=== PATIENT | female | born 1985 | race Caucasian/White ===

== ENCOUNTER 2016-06-05 14:47 | Inpatient (IN) | payer MEDICAID ==
[~2016-06-05] VITALS: Ht 162.6 cm; Wt 67.6 kg
[~2016-06-05 14:47] MED LIST: PRENAT PO
[2016-06-05] MEDS ORDERED: OXYTOCIN 30 UNITS/LR 500 ML IV PRN (15:00)
[2016-06-05] MEDS ORDERED: BUTORPHANOL 2 MG INJ IV PRN (15:00)
[2016-06-05] MEDS ORDERED: OXYTOCIN 30 UNITS/LR 500 ML IV SCH ×2 (15:00)
[2016-06-05] MEDS ORDERED: IBUPROFEN 600 MG TAB PO PRN (15:00)
[2016-06-05] MEDS ORDERED: METHYLERGONOVINE 0.2 MG INJ IM PRN (15:00)
[2016-06-05] MEDS ORDERED: LIDOCAINE 1% (MPF) 30 ML INJ INJ PRN (15:00)
[2016-06-05] MEDS ORDERED: CARBOPROST 250 MCG INJ IM PRN (15:00)
[2016-06-05] MEDS ORDERED: MINERAL OIL LIGHT 10 ML VIAL TOP ONE (15:00)
[2016-06-05] MEDS ORDERED: MISOPROSTOL 200 MCG TAB PR PRN (15:00)
[2016-06-05] MEDS ORDERED: LACTATED RINGER'S 1,000 ML IV PRN (15:00)
[2016-06-05 15:16] VITALS: Ht 162.6 cm; Wt 67.6 kg
[2016-06-05 15:17] VITALS: BP 99/62; PULSE 96; RESP 16
[2016-06-05] MEDS: LACTATED RINGER'S 1,000 ML IV SCH ×2 (15:48→22:31)
[2016-06-05] MEDS ORDERED: DINOPROSTONE 10 MG VAG SUPP VAG ONE (16:00)
[2016-06-05 16:09] LABS: BASOPHILS % 0.1 % (0.0-2.0); EOSINOPHILS # 0.1 10^3/ul (0.0-0.5); EOSINOPHILS % 0.6 % (0.0-7.0); HEMATOCRIT 34.8 % (37.0-47.0); HEMOGLOBIN 11.9 g/dl (12.0-16.0); LYMPHOCYTES # 1.9 10^3/ul (0.8-2.9); MEAN CORPUSCULAR HEMOGLOBIN 30.5 pg (29.0-33.0); MEAN CORPUSCULAR HGB CONC 34.3 g/dl (32.0-37.0); MEAN CORPUSCULAR VOLUME 88.8 fl (82.0-101.0); MEAN PLATELET VOLUME 7.4 fl (7.4-10.4); MONOCYTE # 0.4 10^3/ul (0.3-0.9); MONOCYTES % 4.5 % (0.0-11.0); NEUTROPHIL # 6.8 10^3/ul (1.6-7.5); NEUTROPHILS % 73.8 % (39.0-77.0); PLATELET COUNT 315 10^3/UL (140-440); RED BLOOD COUNT 3.92 10^6/ul (4.20-5.40); RED CELL DISTRIBUTION WIDTH 14.8 % (11.5-14.5); UNCORRECTED WBC 9.1 10^3/ul (4.8-10.8); WHITE BLOOD COUNT 9.1 10^3/ul (4.8-10.8)
[2016-06-05 16:15] LABS: CONDITION 1; LH ANALYZER COMMENTS 1
[2016-06-05 16:22] LABS: INR 0.88; PROTIME 11.9 Sec (12.2-14.2); PT RATIO 0.9
[2016-06-05 16:23] LABS: PARTIAL THROMBOPLASTIN TIME 25.8 Sec (25.0-35.0)
--- NOTE | 2016-06-05 18:01 | HP ---
Date/Time of Note Date/Time of Note DATE: 06/05/16 TIME: 17:57 OB - History Hx of Present Free Text/Dictation admitted for elective induction of the labor Last Menstrual Period: September 01, 2015 Estimated Due Date: Jun 07, 2016 : 2 Para: 1 Care: Good Care Ultrasounds: Normal mid trimester US Obstetrical Complications: None Medical Complications: None Past Family/Social History * Past Medical, Surgical, Family and Obstetric Histories reviewed from chart. Blood Type: O+ Rubella: immune RPR/VDRL: Negative GBS Status: Negative HBsAG: Negative OB Admission Exam Vital Signs Vital Signs Vital Signs Date Time Temp Pulse Resp B/P Pulse Ox O2 Delivery O2 Flow Rate FiO2 06/05/16 15:17 98.7 96 16 99/62 Physical Exam HEENT: WNL Heart: Rhythm Normal Lungs: Clear, Equal Abdomen: WNL Extremities: Normal Reflexes: Normal Cervical Dilatation: 1cm Station: -3 Membranes: Intact Heart Rate: 130's Accelerations: Accelerations Present Decelerations: No Decelerations Varibility: Moderate Contractions on Admission: None Last 72 hours Lab Results CBC & BMP 06/05/16 15:48 OB Assessment/Plan Other Assessment: term gestation for induction of the labor Induction Method: per Misoprostol Protocol SANDHYA BOLTON MD Jun 05, 2016 18:01
[2016-06-06] MEDS: LACTATED RINGER'S 1,000 ML IV SCH ×2 (06:12→12:10)
[2016-06-06] MEDS ORDERED: FENTAnyl 2MCG/ML-ROPIV 0.2% 100 ML ONE (10:19)
[2016-06-06] MEDS ORDERED: morphine 2 MG INJ IV PRN ×2 (11:00)
[2016-06-06] MEDS ORDERED: KETOROLAC 30 MG INJ IV PRN (11:00)
[2016-06-06] MEDS ORDERED: DIPHENHYDRAMINE 50 MG INJ IV PRN (11:00)
[2016-06-06] MEDS ORDERED: HYDROmorphONE 1 MG/ML SYG IV PRN ×2 (11:00)
[2016-06-06] MEDS ORDERED: NALOXONE (0.4 MG/ML) INJ IV PRN (11:00)
[2016-06-06] MEDS ORDERED: FENTAnyl 2MCG/ML-ROPIV 0.2% 100 ML BAG EPI SCH (11:00)
[2016-06-06] MEDS ORDERED: ONDANSETRON 4 MG INJ IV PRN (11:00)
--- NOTE | 2016-06-06 15:21 | LDN ---
Date/Time of Note Date/Time of Note DATE: 06/06/16 TIME: 15:19 Delivery Summary of a viable over intact perineum Placenta Delivered: Spontaneously, Intact & Complete Perineum intact?: Yes Perineal laceration repair: vestibular laceration on L interioir laboa minora was closed using 4 0 Chromic Anesthesia type: Epidural Estimated blood loss: 200 Sponge & Needle done & correct: Yes All needle counts correct: Yes Any foreign bodies felt in the: No Problems: Delivery Information Sex Infant Sex: female Apgars 1 Minute: 9 5 Minute: 9 Suctioning Nose & mouth suctioned at yong: Yes Delee suction performed: No Umbilical Cord Umbilical cord with: 3 Vessels Cord presentations: no nuchal cord Cord Blood was obtained: Yes Mother & Baby Disposition Disposition Mom & Baby to Maternity; Good: Yes (mother and baby were recovered in good condition ) Mom transferred to: Other (maternity ) Baby to NICU: Yes SANDHYA BOLTON MD Jun 06, 2016 15:21
[2016-06-06] MEDS ORDERED: MINERAL OIL LIGHT 10 ML VIAL TOP SCH (15:35)
[2016-06-06] MEDS ORDERED: MINERAL OIL 30ML CUP TOP ONE (16:00)
[2016-06-06] MEDS: LACTATED RINGER'S 1,000 ML IV* SCH ×2 (17:33→20:01)
[2016-06-06 18:00] VITALS: BP 96/54; PULSE 78; RESP 18
[2016-06-06] MEDS ORDERED: WITCH HAZEL/GLYCERIN PAD PR PRN (18:00)
[2016-06-06] MEDS ORDERED: ACETAMINOPHEN/CODEINE #3 TAB PO PRN ×2 (18:00)
[2016-06-06] MEDS ORDERED: METHYLERGONOVINE 0.2 MG INJ IM PRN (18:00)
[2016-06-06] MEDS ORDERED: CARBOPROST 250 MCG INJ IM PRN (18:00)
[2016-06-06] MEDS ORDERED: OXYTOCIN 30 UNITS/LR 500 ML IV PRN (18:00)
[2016-06-06] MEDS ORDERED: ZOLPIDEM 5 MG TAB PO PRN (18:00)
[2016-06-06] MEDS ORDERED: BENZOCAINE 20% 56 ML SPRAY TOP PRN (18:00)
[2016-06-06] MEDS ORDERED: LANOLIN 7 GM TUBE TOP PRN (18:00)
[2016-06-06] MEDS ORDERED: MISOPROSTOL 200 MCG TAB PR PRN (18:00)
[2016-06-06] MEDS ORDERED: DIBUCAINE 1% 30 GM OINT PR PRN (18:00)
[2016-06-06 18:25] VITALS: BP 88/53; PULSE 77; RESP 17
[2016-06-06] MEDS: IBUPROFEN 600 MG TAB PO SCH (18:32)
[2016-06-06] MEDS: CEPHALEXIN 500 MG CAP PO SCH (18:32)
[2016-06-06 20:00] VITALS: BP 100/61; PULSE 85; RESP 18
[2016-06-06] MEDS: SENNA/DOCUSATE NA (8.6MG/50MG) TAB PO SCH (21:29)
[2016-06-06] MEDS: MAGNESIUM HYDROXIDE 30ML CUP PO SCH (21:29)
[2016-06-07] VITALS: BP 95/64; PULSE 130; RESP 18
[2016-06-07] MEDS: CEPHALEXIN 500 MG CAP PO SCH ×5 (00:04→23:44)
[2016-06-07] MEDS: IBUPROFEN 600 MG TAB PO SCH ×5 (00:04→23:44)
[2016-06-07 04:00] VITALS: BP 95/55; PULSE 78
[2016-06-07 07:45] VITALS: BP 92/55; PULSE 77
[2016-06-07 08:31] LABS: BASOPHILS % 0.1 % (0.0-2.0); EOSINOPHILS # 0.1 10^3/ul (0.0-0.5); EOSINOPHILS % 0.4 % (0.0-7.0); HEMATOCRIT 34.9 % (37.0-47.0); HEMOGLOBIN 11.8 g/dl (12.0-16.0); LYMPHOCYTES # 1.6 10^3/ul (0.8-2.9); LYMPHOCYTES % 13.2 % (15.0-51.0); MEAN CORPUSCULAR HEMOGLOBIN 30.2 pg (29.0-33.0); MEAN CORPUSCULAR HGB CONC 33.9 g/dl (32.0-37.0); MEAN CORPUSCULAR VOLUME 89.3 fl (82.0-101.0); MEAN PLATELET VOLUME 7.4 fl (7.4-10.4); MONOCYTE # 0.5 10^3/ul (0.3-0.9); MONOCYTES % 3.8 % (0.0-11.0); NEUTROPHIL # 9.9 10^3/ul (1.6-7.5); NEUTROPHILS % 82.5 % (39.0-77.0); PLATELET COUNT 272 10^3/UL (140-440); RED BLOOD COUNT 3.91 10^6/ul (4.20-5.40); RED CELL DISTRIBUTION WIDTH 14.8 % (11.5-14.5); UNCORRECTED WBC 11.9 10^3/ul (4.8-10.8); WHITE BLOOD COUNT 11.9 10^3/ul (4.8-10.8)
[2016-06-07 09:03] LABS: CONDITION 1; LH ANALYZER COMMENTS 1
[2016-06-07] MEDS: MAGNESIUM HYDROXIDE 30ML CUP PO SCH ×2 (10:11→21:00)
[2016-06-07] MEDS: SENNA/DOCUSATE NA (8.6MG/50MG) TAB PO SCH ×2 (10:11→21:03)
[2016-06-07 16:00] VITALS: BP 103/67; PULSE 82; RESP 19
--- NOTE | 2016-06-07 17:27 | DS ---
Date/Time of Note Date/Time of Note home next day DATE: 06/07/16 TIME: 17:26 Obstetrical Discharge Record Final Diagnosis Final Diagnosis: Term delivered Other Final Diagnosis S/P vaginal delivery Vaginal Delivery Obstetrical Delivery: Spontaneous, Laceration, Repaired Complications Augmentation: Yes Condition on Discharge Physical Assessment Last Vitals: see nurses notes Voiding: Yes Bowel Movement: Yes Breast: Soft, non-tender, Filling Fundus: Firm Abdomen and Incision: soft BS + Episiotomy: NA Calf Tenderness: No Patient Condition: Good SANDHYA BOLTON MD Jun 07, 2016 17:27
--- NOTE | 2016-06-07 17:29 | PD.PPDC ---
RESEARCH/PROGRAM DIRECTOR Discharge Instruction Provider Information Physician Information 31 y/o female admitted in labor and had vaginal delivery Diagnosis Final Diagnosis: S/P vaginal delivery Condition Patient Condition: Good Diet Diet: Resume Regular Diet Activity/Restrictions Activity: Normal Activity May Shower Restrictions: Nothing in the Vagina Return to Work or School: Jun 24, 2016 Follow-up Follow-up with Physician: 4, Week/Weeks Return to clinic for OB Instructions: Breast Tenderness Depression SANDHYA BOLTON MD Jun 07, 2016 17:29
[2016-06-07] MEDS ORDERED: IBUP-1542 PO (17:30)
[2016-06-07 20:15] VITALS: BP 97/61; PULSE 77; RESP 20
[2016-06-08 04:40] VITALS: BP 100/60; PULSE 76; RESP 18
[2016-06-08] MEDS: CEPHALEXIN 500 MG CAP PO SCH ×2 (06:09→12:00)
[2016-06-08] MEDS: IBUPROFEN 600 MG TAB PO SCH ×2 (06:09→12:00)
[2016-06-08 08:40] VITALS: BP 101/78; PULSE 70; RESP 19
[2016-06-08] MEDS: MAGNESIUM HYDROXIDE 30ML CUP PO SCH (08:45)
[2016-06-08] MEDS: SENNA/DOCUSATE NA (8.6MG/50MG) TAB PO SCH (08:45)
[2016-06-08] MEDS ORDERED: VARICELLA VACCINE LIVE/PF 1,350 UNIT/0.5 ML ML SC* ONE (09:00)
[2016-06-08] MEDS ORDERED: DIPHTH/TET/ACEL PERTUSS (ADULT) 0.5 ML VIAL IM* ONE (09:00)
[2016-06-08] MEDS ORDERED: MEASLES,MUMPS,RUBELLA VACCINE INJ SC* ONE (09:00)
== END 2016-06-08 13:15 | disposition home or self-care (01) | DRG 775 ==
LOC: L-D 14:47 → PP1 06-06 17:50 → EDSTATUS 06-07 14:45
PROVIDERS: ADMIT Obstetrics & Gynecology; ATTEND Obstetrics & Gynecology
PROC: 10E0XZZ Delivery of Products of Conception, External Approach (ICD-10-PCS; principal; 2016-06-06)
PROC: 0HQ9XZZ Repair Perineum Skin, External Approach (ICD-10-PCS; 2016-06-06)
DX: O70.0 First degree perineal laceration during delivery (principal); Z37.0 Single live birth; Z3A.00 Weeks of gestation of pregnancy not specified
CPT/HCPCS: 62319; 85025; 85610; 85730; 86592; 86900; 86901; 90715; 90716; J2590; J3010; J7120